=== PATIENT | female | born 1985 | race Caucasian/White ===

== ENCOUNTER 2017-10-26 15:04 | Emergency (ER) | payer OTHER ==
[~2017-10-26 15:04] MED LIST: AMOXICILLIN500 M3 PO; AMOXIL500 MG PO; BACTRIM DS 8001 TAB PO; BENADRYL/LIDO/MAALOX PO; FLONASE120 SPRAY/ NAS; PYRIDIUM200 MG PO
[2017-10-26 15:56] LABS: ABSOLUTE BASOPHIL COUNT 0 /CUMM (0.0-0.2); ABSOLUTE EOSINOPHIL COUNT 0 /CUMM (0.0-0.7); ABSOLUTE GRANULOCYTE CT 10.2 /CUMM (1.4-6.5); ABSOLUTE LYMPH COUNT 0.9 /CUMM (1.2-3.4); ABSOLUTE MONOCYTE COUNT 0.5 /CUMM (0.10-0.60); BASOPHIL % 0 % (0.0-2.0); EOSINOPHIL % 0.1 % (0-5); HEMATOCRIT 37.6 % (37-47); MEAN CORPUSCULAR HGB 28.7 PG (27.0-31.0); MEAN CORPUSCULAR HGB CONC 33.5 G/DL (33.0-37.0); MEAN CORPUSCULAR VOLUME 85.7 FL (81.0-99.0); MEAN PLATELET VOLUME 8.1 FL (7.4-10.4); PLATELET COUNT 267 /CUMM (130-400); RBC DISTRIBUTION WIDTH 14.9 % (11.5-14.5); RED BLOOD CELL CT 4.39 /CUMM (4.20-5.40); WHITE BLOOD CELL COUNT 11.6 /CUMM (4.8-10.8)
[2017-10-26 16:01] LABS: GRANULOCYTE % 87.7 % (42.2-75.2)
--- NOTE | 2017-10-26 19:14 | ED GI/GU/ABDOMINAL COMPLAINT ---
History of Present Illness General Chief Complaint: Upper Respiratory Sx/Fever Stated Complaint: 27 WKS PREG URI WAS TOLD TO COME TO ER Source: patient Exam Limitations: no limitations Vital Signs & Intake/Output Vital Signs & Intake/Output Vital Signs Date Time Temp Pulse Resp B/P B/P Pulse O2 O2 Flow FiO2 Mean Ox Delivery Rate 10/26 1941 98.9 10/26 1517 98.3 112 16 123/86 97 Room Air Allergies Coded Allergies: NO KNOWN ALLERGIES (10/26/17) Reconcile Medications Amoxicillin (Amoxil) 500 MG CAP 1 TAB PO TID INFECITON Amoxicillin 500 MG TABLET 1 TAB PO BID PHARYNGITIS [BENADRYL/LIDO/MAALOX] 15 ML ORAL.SUSP 5 ML PO TID PRN THORAT PAIN SWISH AND SWALLOW 1/3 BENADRYL 1/3 MAALOX 1/3 LIDOCAINE Fluticasone Propionate (Flonase) 120 SPRAY/BOT SPR 2 SPRY MARIUSZ DAILY SINUSITIS 2 SPRAYS EACH NOSTRIL DAILY Ondansetron (Zofran Odt) 4 MG TAB.RAPDIS 1 TAB SL TID PRN nausea Phenazopyridine Hydrochlorid2 (Pyridium) 200 MG TAB 1 TAB PO TID DYSURIA Sulfamethoxazole/Trimethopri (Bactrim Ds 800 MG-160 MG) 1 TAB TAB 1 TAB PO BID UTI Triage Note: PT TO ED SIB OB FOR GI BUG X24 HOURS. OB REQUESTING IV FLUIDS. PT HAS BEEN +V/D. IS CURRENTLY 27 WEEKS COTY 01/22. Triage Nurses Notes Reviewed? yes ? y Is pt currently ? No Onset: Abrupt Duration: day(s): (1-2), changing over time, continues in ED Timing: single episode today Quality/Severity: cramping, vomiting Severity Numbers: 6 Location: generalized abdomen Radiation: no radiation Activities at Onset: none Prior Abdominal Problems: none Sexually Active: Yes No Modifying Factors: none Modifying Factors: Worsens With: vomiting. Associated Symptoms: abdominal pain, diarrhea, nausea/vomiting HPI: 32-year-old female 2 P1 currently 27 weeks presents for evaluation of nausea vomiting diarrhea and abdominal pain. Patient is a symptoms started 1-2 days ago and been persistent. She states that she has bilateral lower abdominal cramping worse after vomiting. She has not been able tolerate much fluids. She is not taking any medicine. No fever. She also reports multiple episodes of watery diarrhea no blood or mucus. She states that her is sick at home with similar symptoms. She denies vaginal bleeding or change in feeling her baby's movement. No fever no chest pain or shortness of breath no lower extremity edema no headache. No recent travel or recent antibiotics. No urinary symptoms. (Tate Ceja) Past History Travel History Traveled to [place] past 21 day No Medical History Any Pertinent Medical History? see below for history Neurological: NONE EENT: NONE Cardiovascular: NONE Respiratory: NONE Gastrointestinal: NONE Hepatic: NONE Renal: NONE Musculoskeletal: NONE Psychiatric: NONE Endocrine: NONE Blood Disorders: NONE Cancer(s): NONE INDUSTRIAL RELATIONS SPECIALIST/Reproductive: NONE Surgical History Surgical History: Psychosocial History What is your primary language Cape Verdean Tobacco Use: Never used Family History Hx Contributory? No (Tate Ceja) Review of Systems Review of Systems Constitutional: Reports: no symptoms. EENTM: Reports: no symptoms. Respiratory: Reports: no symptoms. Cardiovascular: Reports: no symptoms. GI: Reports: see HPI, abdominal pain, diarrhea, nausea, vomiting. Genitourinary: Reports: no symptoms. Musculoskeletal: Reports: no symptoms. Skin: Reports: no symptoms. Neurological/Psychological: Reports: no symptoms. Hematologic/Endocrine: Reports: no symptoms. Immunologic/Allergic: Reports: no symptoms. All Other Systems: Reviewed and Negative (Tate Ceja) Physical Exam Physical Exam General Appearance: well developed/nourished, no apparent distress, alert, awake Head: atraumatic, normal appearance Eyes: Bilateral: normal appearance, PERRL, EOMI. Ears, Nose, Throat, Mouth: hearing grossly normal, moist mucous membrane Neck: normal inspection, supple, full range of motion Respiratory: normal breath sounds, chest non-tender, no respiratory distress, lungs clear Cardiovascular: regular rate/rhythm, normal peripheral pulses Peripheral Pulses: 2+ radial (R), 2+ radial (L) Gastrointestinal: normal bowel sounds, non-tender, no organomegaly, tenderness ( bilateral flanks) Back: normal inspection, normal range of motion, no vertebral tenderness Extremities: normal range of motion, no peripheral edema Neurologic/Psych: no motor/sensory deficits, awake, alert, oriented x 3, normal gait, normal mood/affect Skin: intact, normal color, warm/dry Core Measures ACS in differential dx? No Sepsis Present: No Sepsis Focused Exam Completed? No (Roosevelt TRUJILLO,Tate) Progress Differential Diagnosis: AAA, AMI, appendicitis, biliary colic, bowel obstruction , cholecystitis, diverticulitis, gastritis, intrauterine , kidney stone , peptic ulcer, PUD/GERD, UTI/pyelo, gastroenteritis, colitis Plan of Care: Orders Procedure Date/time Status URINALYSIS 10/26 1804 Complete Saline Lock 10/26 1523 Active COMPREHENSIVE METABOLIC PANEL 10/26 1523 Complete CBC WITHOUT DIFFERENTIAL 10/26 152 Complete RAPID VIRAL INFLUENZA A 10/26 1507 Complete Laboratory Tests 10/26/17 2100: Urine Color YEL, Urine Clarity HAZY H, Urine pH 6.0, Ur Specific [place] >= 1.030, Urine Protein NEG, Urine Ketones >=80, Urine Nitrite NEG, Urine Bilirubin NEG, Urine Urobilinogen 0.2, Ur Leukocyte Esterase NEG, Ur Microscopic SEDIMENT EXAMINED, Urine RBC RARE, Urine WBC 1-3 H, Ur Epithelial Cells MOD H, Urine Bacteria MOD H, Urine Mucus MOD H, Urine Hemoglobin NEG, Urine Glucose NEG 10/26/17 1547: Anion Gap 11, Estimated GFR > 60, BUN/Creatinine Ratio 30.0 H, Glucose 76, Calcium 9.1, Total Bilirubin 0.6, AST 14, ALT 20, Alkaline Phosphatase 68, Total Protein 6.5, Albumin 3.7, Globulin 2.8, Albumin/Globulin Ratio 1.3, CBC w Diff NO MAN DIFF REQ, RBC 4.39, MCV 85.7, MCH 28.7, MCHC 33.5, RDW 14.9 H, MPV 8.1, Gran % 87.7 H, Lymphocytes % 7.5 L, Monocytes % 4.7, Eosinophils % 0.1, Basophils % 0, Absolute Granulocytes 10.2 H, Absolute Lymphocytes 0.9 L, Absolute Monocytes 0.5, Absolute Eosinophils 0, Absolute Basophils 0 Microbiology 10/26 1520 NASOPHARYN: Influenza Virus A & B Rapid Smear - COMP Patient seen and evaluated. Vital signs are stable she appears well. She has some bilateral tenderness to the flanks. No peritoneal signs. No vaginal bleeding she is afebrile. Patient was medicated with IV fluids and IV Pepcid and Zofran. Basic blood work and in viability ultrasound obtained. We'll reevaluate patient Patient is feeling better after medications and fluids. Work does not show any significant findings. Urine is not showing signs of infection. Patient was able to tolerate food and fluids here. Reevaluation of her abdomen does not show any signs of peritonitis. No vaginal bleeding. Reviewed all results of today's visit with patient. Continue Zofran bland foods increase fluids follow- up with BAR GAUGER AND LUBRICATOR TENDER. Case discussed with Dr. Palmer he agrees. Diagnostic Imaging: Viewed by Me: Ultrasound. Discussed w/RAD: Ultrasound. Radiology Impression: PATIENT: LAURA ANGELES PRESENT AGE: 32 PATIENT ACCOUNT NO: [id number] : 87 LOCATION: [facility] ORDERING PHYSICIAN: Tate TRUJILLO SERVICE DATE: 10/26/17 EXAM TYPE: US - US- VIABILITY EXAMINATION: ULTRASOUND PELVIC, Limited. CLINICAL INFORMATION: Nausea. Vomiting. Diarrhea. Fever. COMPARISON: None. TECHNIQUE: Transabdominal ultrasound. Spectral Doppler and color Doppler exam was utilized. LMP: 04/09/2017. Gestational age 28 weeks 4 days. COTY 01/14/2018 FINDINGS: UTERUS: There is a single intrauterine gestation in transverse lie in breech presentation. There is motion. cardiac activity is 140 bpm. Placenta is posterior. biometrics: 1. Biparietal diameter. 7.06 cm. Gestational age 20 weeks 3 days. 2. OFD. 7.66 cm. 24 weeks 2 days. 3. Head circumference. 24.97 cm. 27 weeks 1 day. 4. Abdominal circumference. 24.17 cm. 28 weeks 4 days. 5. Femur length. 5.17 cm. 27 weeks 5 days. Estimated gestational age by this ultrasound study is 28 weeks 0 days COTY 01/18/2018 Estimated weight 1164 g +/- 1 170 g, 20th percentile for LMP dating. Amniotic fluid index 12.4 cm. Largest pocket 4.94 cm. IMPRESSION: Single intrauterine gestation. Estimated gestational age by ultrasound 28 weeks 0 days. COTY 01/18/2018. DICTATED BY: Krunal Sánchez MD DATE/TIME DICTATED:10/26/172000 HOSPICE SUPERINTENDENT:KELSEY DATE/TIME TRANSCRIBED:10/26/172000 CONFIDENTIAL, DO NOT COPY WITHOUT APPROPRIATE AUTHORIZATION. <Electronically signed in Other Vendor System> SIGNED BY: Krunal Sánchez MD 10/26/172009 Initial ED EKG: none (Tate Ceja) Departure Departure Disposition: HOME OR SELF CARE Condition: Stable Clinical Impression Primary Impression: Nausea and vomiting during Referrals: James MARADIAGA,Ivon (PCP/Family) Additional Instructions: Rest and drink plenty of fluids. Eat bland foods like bananas rice applesauce and toast. Make a follow-up appointment with your BAR GAUGER AND LUBRICATOR TENDER doctor for this week. Zofran for nausea Tylenol for pain. Monitor symptoms closely return with any concerns Departure Forms: Customer Survey General Discharge Information Prescriptions: Current Visit Scripts Ondansetron (Zofran Odt) 1 TAB SL TID PRN nausea #10 TAB (Tate Ceja) PA/RETAIL LOAN ORIGINATOR ASSISTANT Co-Sign Statement Statement: ED Attending supervision documentation- [] I saw and evaluated the patient. I have also reviewed all the pertinent lab results and diagnostic results. I agree with the findings and the plan of care as documented in the PA's/RETAIL LOAN ORIGINATOR ASSISTANT's documentation. [x] I have reviewed the ED Record and agree with the PA's/RETAIL LOAN ORIGINATOR ASSISTANT's documentation. [] Additions or exceptions (if any) to the PAs/RETAIL LOAN ORIGINATOR ASSISTANT's note and plan are summarized below: [] (Spencer MARADIAGA,Jorge Best)
--- NOTE | 2017-10-26 20:10 | ULTRASOUND REPORT ---
EXAMINATION: ULTRASOUND PELVIC, Limited. CLINICAL INFORMATION: Nausea. Vomiting. Diarrhea. Fever. COMPARISON: None. TECHNIQUE: Transabdominal ultrasound. Spectral Doppler and color Doppler exam was utilized. LMP: 04/09/2017. Gestational age 28 weeks 4 days. COTY 01/14/2018 FINDINGS: UTERUS: There is a single intrauterine gestation in transverse lie in breech presentation. There is motion. cardiac activity is 140 bpm. Placenta is posterior. biometrics: 1. Biparietal diameter. 7.06 cm. Gestational age 20 weeks 3 days. 2. OFD. 7.66 cm. 24 weeks 2 days. 3. Head circumference. 24.97 cm. 27 weeks 1 day. 4. Abdominal circumference. 24.17 cm. 28 weeks 4 days. 5. Femur length. 5.17 cm. 27 weeks 5 days. Estimated gestational age by this ultrasound study is 28 weeks 0 days COTY 01/18/2018 Estimated weight 1164 g +/- 1 170 g, 20th percentile for LMP dating. Amniotic fluid index 12.4 cm. Largest pocket 4.94 cm. IMPRESSION: Single intrauterine gestation. Estimated gestational age by ultrasound 28 weeks 0 days. COTY 01/18/2018.
[2017-10-26] MEDS ORDERED: ZOFRAN ODT4 M1 SL (22:03)
[2017-10-26 22:10] VITALS: BP 132/87
== END 2017-10-26 22:14 ==
LOC: ERH 15:04
PROVIDERS: Physician Assistant Medical
DX: O21.9 Vomiting of pregnancy, unspecified (principal)
CPT/HCPCS: 81001; 87804; 87804-59; 96361; 96374; 96375; J0131; J2405

== ENCOUNTER 2017-11-20 14:17 | Inpatient (IN) | payer OTHER ==
[~2017-11-20] VITALS: Ht 157.5 cm; Wt 98.4 kg
[~2017-11-20 14:17] MED LIST changes: +ZOFRAN ODT4 M1 SL
--- NOTE | 2017-11-20 14:32 | ED GENERAL ADULT ---
History of Present Illness General Chief Complaint: Abdominal Pain/Flank Pain Stated Complaint: 31 WEEKS PREG , LT FLANK PAIN Source: patient Exam Limitations: no limitations Vital Signs & Intake/Output Vital Signs & Intake/Output Vital Signs Date Time Temp Pulse Resp B/P B/P Pulse O2 O2 Flow FiO2 Mean Ox Delivery Rate 11/20 1834 98.4 84 18 120/68 98 Room Air 11/20 1653 97.4 74 20 120/64 97 11/20 1530 90 20 104/66 97 Room Air promptly 11/20/17 2:47 PM 32-year-old female presents to the emergency department for severe left-sided flank pain. She is currently 31 weeks . She denies vaginal bleeding she. She said the onset of the symptoms began approximately 4 hours ago. She denies fever vomiting or other complaints. She was seen in the childbirth center and was told that she is not in labor. Recently started on Zithromax and Tamiflu for a viral infection her CAR DELIVERER is Dr. Baig. Allergies Coded Allergies: NO KNOWN ALLERGIES (10/26/17) Reconcile Medications Azithromycin (Zithromax) 250 MG TABLET 1 DP PO AD ABX (Reported) 2 the first day followed by 1 for days 2-5 Humulin N (Conchis) (Humulin N) 100 UNIT/ML VIAL 6 UNITS SC QPM GESTATIONAL DM (Reported) Ondansetron (Zofran Odt) 4 MG TAB.RAPDIS 1 TAB SL TID PRN nausea Oseltamivir Phosphate (Tamiflu) 75 MG CAPSULE 1 CAP PO BID FLU SYMPTOMS ( Reported) Pnv95/Ferrous Fumarate/FA ( Formula Tablet) (Unknown Strength) TABLET (Unknown Dose) PO DAILY SUPPLEMENT (Reported) Triage Note: 32F AT 31WEEKS GESTATION FROM CBC TO ED FOR LEFT FLANK PAIN SINCE 11:15 WITHOUT ANY RELIEF FROM TYLENOL. PAIN IS CONSTANT.DENIES DYSURIA OR HEMATURIA. MINIMAL CVA TENDERNESS. PAIN IS STABBING AND RADIATES DOWN HIP INTO LEG. HX GESTATIONAL DIABETES. +N/-V/-D. AFEBRILE. NOTABLY UNCOMFORTABLE AND COLICKY IN TRIAGE. REPORTS VAGINAL BLEEDING A FEW DAYS AGO BUT NONE TODAY. DISCHARGE UNCHANGED FROM BASELINE Triage Nurses Notes Reviewed? yes : Yes Patient currently breastfeeds: Yes HPI: IV fluids IV morphine for pain, IV Zofran, Past History Travel History Traveled to [place] past 21 day No Medical History Any Pertinent Medical History? see below for history Neurological: NONE EENT: NONE Cardiovascular: NONE Respiratory: NONE Gastrointestinal: NONE Hepatic: NONE Renal: NONE Musculoskeletal: NONE Psychiatric: NONE Endocrine: NONE Blood Disorders: NONE Cancer(s): NONE CONTACT CENTER CONSULTANT/Reproductive: NONE Surgical History Surgical History: Psychosocial History What is your primary language Kiswahili Tobacco Use: Never used Family History Hx Contributory? No Review of Systems Review of Systems Constitutional: Reports: fever. EENTM: Reports: no symptoms. Respiratory: Denies: short of breath. Cardiovascular: Denies: chest pain. GI: Reports: see HPI, vomiting. Genitourinary: Reports: see HPI. Musculoskeletal: Reports: back pain. Skin: Denies: rash. Neurological/Psychological: Reports: headache. Hematologic/Endocrine: Denies: bruising, bleeding. Physical Exam Physical Exam General Appearance: well developed/nourished, no apparent distress, alert, awake , anxious Head: atraumatic, normal appearance Eyes: Bilateral: normal appearance, PERRL, EOMI. Ears, Nose, Throat: normal pharynx Neck: normal inspection, supple, full range of motion Respiratory: normal breath sounds, chest non-tender, no respiratory distress Cardiovascular: tachycardia Peripheral Pulses: 4+ radial (R), 4+ radial (L) Gastrointestinal: gravid uterus nontender Back: CVA tenderness (L), decreased range of motion Extremities: pedal edema Neurologic/Psych: no motor/sensory deficits, awake, alert, oriented x 3 Core Measures ACS in differential dx? No CVA/TIA Diagnosis: No Sepsis Present: No Sepsis Focused Exam Completed? No Progress Differential Diagnoses I considered the following diagnoses in my evaluation of the patient: [ Pyelonephritis, renal colic, premature labor, abruption of placenta Plan of Care: Orders Procedure Date/time Status Consistent Carbohydrate 1 11/21 B Active CBC WITHOUT DIFFERENTIAL 11/21 0800 Active Patient Data 11/20 1741 Active ED Holding Orders 11/20 1739 Active Admit to inpatient 11/20 1739 Active Vital Signs 11/20 1739 Active Code Status 11/20 1739 Active BLOOD CULTURE 11/20 1711 Active Intake & Output 11/20 1655 Active CULTURE,URINE 11/20 1453 Active URINALYSIS 11/20 1453 Complete PROTHROMBIN TIME 11/20 1453 Complete COMPREHENSIVE METABOLIC PANEL 11/20 1453 Complete CBC WITHOUT DIFFERENTIAL 11/20 1453 Complete VTE Mechanical Prophylaxis 11/20 UNK Active OB: Monitoring 11/20 UNK Active Activity/Ambulation 11/20 UNK Active Current Medications Sig/Terence Start time Last Medication Dose Stop Time Status Admin Ceftriaxone Sodium 1,000 MG DAILY 11/21 0900 AC (Rocephin) Insulin Human NPH 6 UNITS AT BEDTIME 11/20 2100 AC (Novolin-N Insulin) Famotidine 20 MG DAILY 11/20 193 AC (Pepcid) Dextrose/Lactated 1,000 ML Q6H 11/20 1914 AC Ringer's (D5W in Lactated Ringers) Ondansetron HCl 4 MG Q6P PRN 11/20 1914 AC (Zofran) Oxycodone/ 1 TAB Q4P PRN 11/20 1914 AC Acetaminophen (Percocet) Oxycodone/ 2 TAB Q4P PRN 11/20 1914 AC Acetaminophen (Percocet) Laboratory Tests 11/20/17 1530: Urinalysis LIGHT H, Urine Color YEL, Urine Clarity HAZY H, Urine pH 6.0, Ur Specific [place] >= 1.030, Urine Protein 100 H, Urine Ketones 40 H, Urine Nitrite NEG, Urine Bilirubin NEG, Urine Urobilinogen 0.2, Ur Leukocyte Esterase TRACE H, Ur Microscopic SEDIMENT EXAMINED, Urine RBC 50-75 H, Urine WBC 10-15 H, Ur Epithelial Cells MOD H, Urine Bacteria FEW H, Urine Mucus FEW, Urine Hemoglobin LARGE H, Urine Glucose NEG 11/20/17 1509: Anion Gap 12, Estimated GFR > 60, BUN/Creatinine Ratio 24.0, Glucose 92, Calcium 9.5, Total Bilirubin 0.3, AST 17, ALT 35, Alkaline Phosphatase 92, Total Protein 6.4, Albumin 3.7, Globulin 2.7, Albumin/Globulin Ratio 1.4, PT 11.3, INR 1.04, CBC w Diff NO MAN DIFF REQ, RBC 4.39, MCV 85.5, MCH 28.1, MCHC 32.8 L, RDW 14.6 H, MPV 8.1, Gran % 83.3 H, Lymphocytes % 12.1 L, Monocytes % 4.1, Eosinophils % 0.2, Basophils % 0.3, Absolute Granulocytes 11.6 H, Absolute Lymphocytes 1.7, Absolute Monocytes 0.6, Absolute Eosinophils 0, Absolute Basophils 0 Microbiology 11/20 1715 BLOOD: Blood Culture - RECD 11/20 1700 BLOOD: Blood Culture - RECD 11/20 1530 URINE ROUT: Urine Culture - RECD Initial ED EKG: none Departure Departure Disposition: STILL A PATIENT Condition: Stable Clinical Impression Primary Impression: Flank pain Secondary Impressions: Hydronephrosis, , Pyelonephritis, Vomiting Referrals: Ivon Ramirez MD (PCP/Family) Departure Forms: Customer Survey General Discharge Information Admission Note Spoke With: Jarrod Bianchi MD Documentation of Exam: Documentation of any treatments & extenuating circumstances including Concerns Regarding Discharge (functional status, medication knowledge or non-compliance, living conditions, etc.) that warrant an admission rather than observation: [ Patient needs admission for IV antibiotics, IV pain control, IV fluids, urology consultation] PATIENT: LAURA ANGELES PRESENT AGE: 32 PATIENT ACCOUNT NO: [id number] : 87 LOCATION: [facility] ORDERING PHYSICIAN: Lee Ross DO SERVICE DATE: 11/20/17 EXAM TYPE: US - US- VIABILITY EXAMINATION: ULTRASOUND PELVIC, COMPLETE CLINICAL INFORMATION: Left flank pain. . COMPARISON: Ultrasound pelvis 10/26/2017 TECHNIQUE: Transabdominal grayscale ultrasound. Spectral Doppler and color Doppler exam was utilized. Spectral Doppler used to assess cardiac activity. LMP: 04/17/2017. Gestational age 31 weeks 0 days. COTY 01/22/2018 FINDINGS: UTERUS: There is a single intrauterine gestation in a longitudinal lie, vertex presentation. There is motion and cardiac activity. heart rate 132 bpm. Appropriate amount of amniotic fluid. Amniotic fluid index 16.4 cm. Largest pocket measures 5.42 cm. Placenta is posterior. biometrics: 1. Biparietal diameter. 8.34 cm. 33 weeks 3 days. 2. OFD. 10.63 cm. 33 weeks 5 days. 3. Head circumference. 30.12 cm. 33 weeks 3 days. 4. Abdominal circumference. 27.6 cm. 31 weeks 5 days. 5. Femur length. 6.21 cm. 32 weeks 2 days. Gestational age by this exam is 32 weeks 5 days. COTY 01/10/2018. Estimated weight 1911 g +/- 2 179 g. Estimated weight is 76 percentile by LMP dating. ADNEXA: Not assessed due to third trimester . Cul-de-sac: No Fluid IMPRESSION: Single intrauterine gestation. motion present. heart rate 132 bpm. DICTATED BY: Krunal Sánchez MD DATE/TIME DICTATED:11/20/171701 DIELECTRIC EMBOSSING MACHINE OPERATOR:KELSEY DATE/TIME TRANSCRIBED:11/20/171701 CONFIDENTIAL, DO NOT COPY WITHOUT APPROPRIATE AUTHORIZATION. <Electronically signed in Other Vendor System> SIGNED BY: Krunal Sánchez MD 11/20/171711 PATIENT: LAURA ANGELES PRESENT AGE: 32 PATIENT ACCOUNT NO: [id number] : 87 LOCATION: [facility] ORDERING PHYSICIAN: Lee Ross DO SERVICE DATE: 11/20/17 EXAM TYPE: US - US-RENAL/KIDNEY EXAMINATION: US RETROPERITONEAL COMPLETE (RENAL) CLINICAL INFORMATION: Left flank pain. Patient reports 31 weeks COMPARISON: Ultrasound of the kidneys February 2016 TECHNIQUE: Real-time imaging of the kidneys and bladder. FINDINGS: Right kidney: 12.3 x 5.2 x 5.3 cm. No hydronephrosis. No mass or calcification. Left kidney: 12.1 x 7.2 x 6.7. There is mild hydronephrosis. This was not present on the prior exam. Bladder: Not visible IMPRESSION: Mild hydronephrosis on the left of uncertain significance given the patient is reportedly 31 weeks . This can be physiologic in such patients. No calculi identified DICTATED BY: Jan Dominguez MD DATE/TIME DICTATED:11/20/171703 DIELECTRIC EMBOSSING MACHINE OPERATOR:KELSEY DATE/TIME TRANSCRIBED:11/20/171703 CONFIDENTIAL, DO NOT COPY WITHOUT APPROPRIATE AUTHORIZATION. <Electronically signed in Other Vendor System> SIGNED BY: Jan Dominguez MD 11/20 The patient was accepted for admission to the childbirth center by Dr. Carr Critical Care Note Critical Care Note Critical Care Time: non-applicable
[2017-11-20 15:23] LABS: PT 11.3 SEC (9.4-12.5)
[2017-11-20 15:39] LABS: ABSOLUTE BASOPHIL COUNT 0 /CUMM (0.0-0.2); ABSOLUTE EOSINOPHIL COUNT 0 /CUMM (0.0-0.7); ABSOLUTE LYMPH COUNT 1.7 /CUMM (1.2-3.4); ABSOLUTE MONOCYTE COUNT 0.6 /CUMM (0.10-0.60); BASOPHIL % 0.3 % (0.0-2.0); EOSINOPHIL % 0.2 % (0-5); GRANULOCYTE % 83.3 % (42.2-75.2); HEMATOCRIT 37.5 % (37-47); MEAN CORPUSCULAR HGB 28.1 PG (27.0-31.0); MEAN CORPUSCULAR HGB CONC 32.8 G/DL (33.0-37.0); MEAN CORPUSCULAR VOLUME 85.5 FL (81.0-99.0); MEAN PLATELET VOLUME 8.1 FL (7.4-10.4); PLATELET COUNT 276 /CUMM (130-400); RBC DISTRIBUTION WIDTH 14.6 % (11.5-14.5); RED BLOOD CELL CT 4.39 /CUMM (4.20-5.40); WHITE BLOOD CELL COUNT 13.9 /CUMM (4.8-10.8)
[2017-11-20 15:40] LABS: ABSOLUTE GRANULOCYTE CT 11.6 /CUMM (1.4-6.5)
--- NOTE | 2017-11-20 17:11 | ULTRASOUND REPORT ---
EXAMINATION: US RETROPERITONEAL COMPLETE (RENAL) CLINICAL INFORMATION: Left flank pain. Patient reports 31 weeks COMPARISON: Ultrasound of the kidneys February 2016 TECHNIQUE: Real-time imaging of the kidneys and bladder. FINDINGS: Right kidney: 12.3 x 5.2 x 5.3 cm. No hydronephrosis. No mass or calcification. Left kidney: 12.1 x 7.2 x 6.7. There is mild hydronephrosis. This was not present on the prior exam. Bladder: Not visible IMPRESSION: Mild hydronephrosis on the left of uncertain significance given the patient is reportedly 31 weeks . This can be physiologic in such patients. No calculi identified
--- NOTE | 2017-11-20 17:12 | ULTRASOUND REPORT ---
EXAMINATION: ULTRASOUND PELVIC, COMPLETE CLINICAL INFORMATION: Left flank pain. . COMPARISON: Ultrasound pelvis 10/26/2017 TECHNIQUE: Transabdominal grayscale ultrasound. Spectral Doppler and color Doppler exam was utilized. Spectral Doppler used to assess cardiac activity. LMP: 04/17/2017. Gestational age 31 weeks 0 days. COTY 01/22/2018 FINDINGS: UTERUS: There is a single intrauterine gestation in a longitudinal lie, vertex presentation. There is motion and cardiac activity. heart rate 132 bpm. Appropriate amount of amniotic fluid. Amniotic fluid index 16.4 cm. Largest pocket measures 5.42 cm. Placenta is posterior. biometrics: 1. Biparietal diameter. 8.34 cm. 33 weeks 3 days. 2. OFD. 10.63 cm. 33 weeks 5 days. 3. Head circumference. 30.12 cm. 33 weeks 3 days. 4. Abdominal circumference. 27.6 cm. 31 weeks 5 days. 5. Femur length. 6.21 cm. 32 weeks 2 days. Gestational age by this exam is 32 weeks 5 days. COTY 01/10/2018. Estimated weight 1911 g +/- 2 179 g. Estimated weight is 76 percentile by LMP dating. ADNEXA: Not assessed due to third trimester . Cul-de-sac: No Fluid IMPRESSION: Single intrauterine gestation. motion present. heart rate 132 bpm.
[2017-11-20] MEDS ORDERED: ZITHROMAX250 M2 PO (18:28)
[2017-11-20] MEDS ORDERED: HUMULIN N100 UNIT/1 SC (18:28)
[2017-11-20] MEDS ORDERED: TAMIFLU75 M1 PO (18:29)
[2017-11-20] MEDS ORDERED: PRENATAL FORMU1 EAC2 PO (18:30)
[2017-11-20 18:34] VITALS: BP 120/68
--- NOTE | 2017-11-21 08:32 | PN- OBGYN ---
See Addendum Surgical Brief Attending Note Brief Attending Note: Seen and evaluated Feels much better than yesterday Pain minimal but does feel pressure on left side Denies nausea nor vomiting nor dyspnea Positive movement Vitals per paper record Lungs clear Abdomen soft and back on maternal right Cvat mild on left Meds. Ceftriaxone Hd#2 for this patient with acute left side pyelonephritis and 31 weeks gestation ID. Afebrile and continue IV antivbiotics x 48 hours total than change to appropriate oral antibiotic. After 10 day course to stay on suppression. Recommend probiotic to reduce antibiotic associated diarrhea and or willow. Maintain Po hydration. Follow up cbc and cultures. . heart rate q shift per parameters. No findings of PTL VTE prophylaxis with alps. Anticipate dc 11/22/18 with one week follow up with Dr Baig
[2017-11-21 09:00] LABS: ABSOLUTE BASOPHIL COUNT 0 /CUMM (0.0-0.2); ABSOLUTE EOSINOPHIL COUNT 0.1 /CUMM (0.0-0.7); ABSOLUTE GRANULOCYTE CT 7.1 /CUMM (1.4-6.5); ABSOLUTE LYMPH COUNT 2.1 /CUMM (1.2-3.4); ABSOLUTE MONOCYTE COUNT 0.8 /CUMM (0.10-0.60); BASOPHIL % 0.2 % (0.0-2.0); EOSINOPHIL % 0.6 % (0-5); GRANULOCYTE % 70.5 % (42.2-75.2); MEAN CORPUSCULAR HGB 28.5 PG (27.0-31.0); MEAN CORPUSCULAR VOLUME 86.3 FL (81.0-99.0); MEAN PLATELET VOLUME 7.8 FL (7.4-10.4); PLATELET COUNT 218 /CUMM (130-400); RBC DISTRIBUTION WIDTH 14.5 % (11.5-14.5); RED BLOOD CELL CT 3.44 /CUMM (4.20-5.40)
[2017-11-21 09:54] LABS: HEMATOCRIT 29.7 % (37-47)
--- NOTE | 2017-11-21 16:09 | Cons- Urology ---
General Information and HPI Consulting Request Date of Consult: 11/21/17 Requested By: Jarrod Bianchi MD Reason for Consult: Left flank pain with hydronephrosis Source of Information: patient, old records Exam Limitations: no limitations History of Present Illness: Patient is 31 weeks' , and 1 week ago had some low-grade fevers with some left back pain. This resolved spontaneously, but she did have a bit of a cough. Had some coughing during the week, which resulted in some minimal vaginal/urinary bleeding. She did well until suddenly Thursday afternoon, when she developed severe left flank pain, which was unremitting. She was seen in the emergency room, and evaluated. She was noted to have pyuria, microhematuria , and she underwent an ultrasound which revealed mild left hydronephrosis. She was admitted started on IV antibiotics, and given IV fluids. She has had no pain since yesterday. She denies any significant urologic history, other than an occasional UTI. She denies any personal or family history of kidney stones. She is feeling well now , without any urinary complaints. Allergies/Medications Allergies: Coded Allergies: NO KNOWN ALLERGIES (10/26/17) Home Med List: Azithromycin (Zithromax) 250 MG TABLET 1 DP PO AD ABX (Reported) 2 the first day followed by 1 for days 2-5 Humulin N (Conchis) (Humulin N) 100 UNIT/ML VIAL 6 UNITS SC QPM GESTATIONAL DM (Reported) Ondansetron (Zofran Odt) 4 MG TAB.RAPDIS 1 TAB SL TID PRN nausea Oseltamivir Phosphate (Tamiflu) 75 MG CAPSULE 1 CAP PO BID FLU SYMPTOMS ( Reported) Pnv95/Ferrous Fumarate/FA ( Formula Tablet) (Unknown Strength) TABLET (Unknown Dose) PO DAILY SUPPLEMENT (Reported) Current Medications: Current Medications Sig/Terence Start time Last Medication Dose Route Stop Time Status Admin Ceftriaxone Sodium 1,000 MG 1800 11/21 1800 AC IV Ceftriaxone Sodium 0 .STK-MED ONE 11/20 1741 DC .ROUTE Ceftriaxone Sodium 1,000 MG ONCE ONE 11/20 1730 DC 11/20 IV 11/20 173 1736 Dextrose/Lactated 1,000 ML Q6H 11/20 1915 DC Ringer's IV Famotidine 20 MG QPM 11/20 2108 AC 11/20 PO 3 Famotidine 20 MG DAILY 11/20 193 DC PO Insulin Human NPH 6 UNITS AT BEDTIME 11/20 2100 AC 11/20 SC 2229 Lactated Ringer's 1,000 ML Q6H 11/20 2014 AC 11/21 IV 0936 Morphine Sulfate 0 .STK-MED ONE 11/20 165 DC .ROUTE Morphine Sulfate 4 MG ONCE ONE 11/20 1645 DC 11/20 IV 11/20 164 165 Multivitamins 1 TAB DAILY 11/21 09 AC 11/21 PO 0936 Ondansetron HCl 4 MG Q6P PRN 11/20 1914 AC IV Ondansetron HCl 0 .STK-MED ONE 11/20 165 DC .ROUTE Ondansetron HCl 4 MG ONCE ONE 11/20 164 DC 11/20 IV 11/20 1645 165 Oxycodone/ 1 TAB Q4P PRN 11/20 1914 AC Acetaminophen PO Oxycodone/ 2 TAB Q4P PRN 11/20 1914 AC Acetaminophen PO Past History Medical History Neurological: NONE EENT: NONE Cardiovascular: NONE Respiratory: NONE Gastrointestinal: NONE Hepatic: NONE Renal: NONE Musculoskeletal: NONE Psychiatric: NONE Endocrine: NONE Blood Disorders: NONE Cancer(s): NONE 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 Surgical History Pertinent Surgical History: Review of Systems Review of Systems: See HPI Exam & Diagnostic Data Vital Signs and I&O Vital Signs Date Time Temp Pulse Resp B/P B/P Pulse O2 O2 Flow FiO2 Mean Ox Delivery Rate 11/20 1834 98.4 84 18 120/68 98 Room Air 11/20 165 97.4 74 20 120/64 97 Intake & Output 11/21 1600 11/21 0800 11/21 0000 11/20 1600 11/20 0800 11/20 0000 Intake Total 1000 Output Total Balance 1000 Intake, IV 1000 Patient 217 lb Weight Weight Reported by Patient Measurement Method Physical Exam Other Physical Findings: She is comfortable sitting up in a chair, communicating easily. She has no CVA tenderness. Last 24 Hours of Labs: Laboratory Tests 11/22 799 Hematology CBC w Diff NO MAN DIFF REQ WBC (4.8 - 10.8 /CUMM) 10.0 RBC (4.20 - 5.40 /CUMM) 3.44 L Hgb (12.0 - 16.0 G/DL) 9.8 L Hct (37 - 47 %) 29.7 L MCV (81.0 - 99.0 FL) 86.3 MCH (27.0 - 31.0 PG) 28.5 MCHC (33.0 - 37.0 G/DL) 33.0 RDW (11.5 - 14.5 %) 14.5 Plt Count (130 - 400 /CUMM) 218 MPV (7.4 - 10.4 FL) 7.8 Gran % (42.2 - 75.2 %) 70.5 Lymphocytes % (20.5 - 51.1 %) 21.2 Monocytes % (1.7 - 9.3 %) 7.5 Eosinophils % (0 - 5 %) 0.6 Basophils % (0.0 - 2.0 %) 0.2 Absolute Granulocytes (1.4 - 6.5 /CUMM) 7.1 H Absolute Lymphocytes (1.2 - 3.4 /CUMM) 2.1 Absolute Monocytes (0.10 - 0.60 /CUMM) 0.8 H Absolute Eosinophils (0.0 - 0.7 /CUMM) 0.1 Absolute Basophils (0.0 - 0.2 /CUMM) 0 Assessment/Plan Assessment/Plan She had sudden left flank pain, of uncertain etiology. She may pass a small stone, and is presently asymptomatic. No stone was recovered, but her urine was not strained during her visit here. Her urine culture is pending, though preliminary is negative. She continues to do well, I suspect she could be discharged Thursday morning. If she does still have a kidney stone, the recommendation would be observation, if she has no sign of urinary tract infection. If she does have urinary tract infection, she should be treated with appropriate antibiotics, and follow-up with Dr. Carl. She should have a follow -up ultrasound in a week or 2, unless she worsens, and should have further evaluation sooner. Should possibly include an MRI to rule out a stone. Consult Acknowledgment - Thank you for your consult request.
--- NOTE | 2017-11-22 08:39 | Discharge Summary ---
Visit Information Visit Dates Admission Date: 11/20/17 Discharge Date: 11/22/17 Hospital Course Course Attending Physician: Jarrod Bianchi MD Primary Care Physician: Ivon Ramirez MD Consulting Request: Consulting Physician: Gilmer Chowdhury Reason for Consult: Hydronephrosis Hospital Course: Patient was admitted from the ED after evaluation for back pain that she described as being in the flank and worse than childbirth. She stated that she had fever the week prior with cough and myalgias and was treated with Azithromycin and Tamiflu. States that than had blood in urine when wipes the preceeding day prior to coming in for evaluation and noted with the pain. No further fevers after the one last week. Since being hospitalized her pain improved. She never had a fever and only mild cough. WBC normalized and urine culture was negative as were blood cultures. Complications: None Allergies: Coded Allergies: NO KNOWN ALLERGIES (10/26/17) Significant Procedures: IV antibiotics Renal ultrasound Pertinent Lab Results: WBC 8 Urine culture negative UA with RBCs Disposition Summary Disposition Principal Diagnosis: Nephrolithiasis Additional Diagnosis: Gestational diabetes Discharge Disposition: home or self care Discharge Instructions General Discharge Information Code Status: Full Code Patient's Diet: Gestational diabetes diet Patient's Activity: As tolerated Follow-Up Instructions/Appts: With Dr Baig this week and Urology Dr Carl in 1-2 weeks Medications at Discharge Discharge Medications: Stop taking the following medications: Azithromycin (Zithromax) 250 MG TABLET ORAL As Directed Oseltamivir Phosphate (Tamiflu) 75 MG CAPSULE ORAL TWICE DAILY Continue taking these medications: Ondansetron (Zofran Odt) 4 MG TAB.RAPDIS 1 Tablet SUBLINGUAL THREE TIMES DAILY as needed for nausea Qty = 10 Comments: PT ONLY GIVEN IV ZOFRAN IN HOSPITAL Humulin N (Conchis) (Humulin N) 100 UNIT/ML VIAL 6 Units Inject into fatty tissue Every night Comments: Last Taken: 21:19 Time: 11/21/17 Pnv95/Ferrous Fumarate/FA ( Formula Tablet) (Unknown Strength) TABLET Unknown Dose ORAL DAILY Comments: Last Taken: 11/21/17 Time: 09:36 Copies To: Erick Puckett MD,Jarrod Post MD Review Statement Documenting Attending: Karri Mejia MD Other Findings: Patient seen and evaluated today States pain is no longer movement present Denies nausea nor vomiting Afebrile and VSS Lungs clear No cvat tenderness Soft abdomen with fundus soft and back on materal right Wbc 8 Urine culture negative Hd#3 for this patient at 31 plus weeks with complicated by GDMA2 and in good control. Found with flank pain and hematuria and admitted to assess for pyelonephritis. In my opinon based on the quality of the pain and negative culture and no fever that this is stone and not infection. Also even though was on Azithromycin that abx would not have coverage for usual pathogens associated with pyelonephritis. Appreciate Urology consultation who also concurred with stone. She will be discharged today with follow up this week Recommend increase PO fluids and to watch for worsening pain and or blood in urine. If fever or worsening pain to contact service provider. She states that she knows she doesnt drink much. Dietary modifications to maintain euglycemia and she will continue outpatient fingersticks for GDM management. Treatment plan reviewed with patient and partner. All questions answered.
[2017-11-22] MEDS ORDERED: COLACE100 M1 PO (17:09)
== END 2017-11-22 09:20 | DRG 781 ==
LOC: ERH 14:17 → GNO 17:41 → ENRESERV 18:11 → ENTRNSPT 18:45 → EDTRNSPTSTS 19:01 → EDTRNSPT 19:01 → CMPTRNSPT 19:07 → GNO 11-22 09:20
PROVIDERS: Emergency Medicine; Obstetrics & Gynecology
DX: O26.833 Pregnancy related renal disease, third trimester (principal); E11.21 Type 2 diabetes mellitus with diabetic nephropathy; Z3A.31 31 weeks gestation of pregnancy
CPT/HCPCS: 76775; 81001; 87040; 87086; 96374; 96375; 96376; J0696; J1815; J2405; J7120

== ENCOUNTER 2018-01-15 07:00 | Inpatient (IN) | payer OTHER ==
[~2018-01-15] VITALS: Ht 157.5 cm; Wt 101.6 kg
[~2018-01-15 07:00] MED LIST changes: +COLACE100 M1 PO; +HUMULIN N100 UNIT/1 SC; +PRENATAL FORMU1 EAC2 PO; +TAMIFLU75 M1 PO; +ZITHROMAX250 M2 PO
[2018-01-15 13:26] VITALS: BP 115/67
--- NOTE | 2018-01-15 17:48 | Labor & Delivery Summary ---
Delivery Summary Section: Section: repeat # Placenta: Placenta: normal, 3 vessel, manual Baby's Weight: 8-2 Apgars - 1 Min: 9 Apgars - 5 Min: 9
--- NOTE | 2018-01-15 17:48 | Operative Report ---
Operative/Inv Procedure Report Surgery Date: 01/15/18 Name of Procedure: Repeat Pre-Operative Diagnosis: Previous , gestational diabetes Post-Operative Diagnosis: Same Estimated Blood Loss: 650 Surgeon/Binder Operator: Erick Puckett MD,Jarrod Ortega MD Anesthesia: spinal Operative/Procedure Note Note: The patient was taken to the operating room and placed on the OR table in the sitting position where she underwent spinal anesthetic without complication. Boots were placed on her lower extremities and activated. She was repositioned into dorsal supine with the block under her right. A Carmona catheter was inserted into the bladder and drained clear yellow urine. The the abdomen was then prepped and draped in usual sterile fashion. A Pfannenstiel skin incision was made with the scalpel and taken down to the layer of the fascia. Fascia was nicked in the midline and extended bilaterally. The underlying rectus muscles were and the peritoneal cavity was entered bluntly. A Mallory bladder blade was inserted to protect the bladder from the operative field. A bladder flap was created using Metzenbaum scissors and placed behind the bladder blade. A low transverse uterine incision was made with the scalpel and the uterus was entered sharply and extended bilaterally. A liveborn female was delivered atraumatically and handed off to the waiting melt house drag operator. The placenta was then manually removed intact with three-vessel cord. The uterus was exteriorized and cleaned with a wet lap sponge of all clot and tissue debris. The uterus was then closed in 2 layers of 0 Polysorb, the second imbricating the first. The ovaries and fallopian tubes were inspected and noted to be normal. The abdomen and pelvis were copiously irrigated and the uterus was placed back into the abdominal cavity. The suture line was once again visualized and noted to be hemostatic. The rectus muscles and the peritoneum was closed in a [id number] fashion. Fascia was reapproximated using 0 Polysorb in a running nonlocking fashion. Subcutaneous tissues were then irrigated and coagulated were needed. The skin was closed using veena and a dry sterile dressing was applied to the wound. The patient was sent to recovery in satisfactory condition. All needle, sponge, and instrument counts were correct at the end of the procedure 4.
[2018-01-16 09:13] LABS: ABSOLUTE BASOPHIL COUNT 0 /CUMM (0.0-0.2); ABSOLUTE EOSINOPHIL COUNT 0.1 /CUMM (0.0-0.7); ABSOLUTE GRANULOCYTE CT 5.9 /CUMM (1.4-6.5); ABSOLUTE LYMPH COUNT 2.2 /CUMM (1.2-3.4); ABSOLUTE MONOCYTE COUNT 0.9 /CUMM (0.10-0.60); BASOPHIL % 0.3 % (0.0-2.0); EOSINOPHIL % 0.6 % (0-5); GRANULOCYTE % 64.9 % (42.2-75.2); HEMATOCRIT 34.3 % (37-47); MEAN CORPUSCULAR HGB 28.8 PG (27.0-31.0); MEAN CORPUSCULAR HGB CONC 33.7 G/DL (33.0-37.0); MEAN CORPUSCULAR VOLUME 85.5 FL (81.0-99.0); MEAN PLATELET VOLUME 8.5 FL (7.4-10.4); PLATELET COUNT 217 /CUMM (130-400); RBC DISTRIBUTION WIDTH 15.4 % (11.5-14.5); RED BLOOD CELL CT 4.01 /CUMM (4.20-5.40); WHITE BLOOD CELL COUNT 9.1 /CUMM (4.8-10.8)
--- NOTE | 2018-01-16 10:45 | PN- OBGYN ---
Surgical Brief Attending Note Brief Attending Note: Seen and evaluated Pain controlled Passing gas Denies nausea Using binder and helping for pain AVSS Lungs clear Abdomen soft and binder on. Wound intact. No erythema. Extremities no homans and no edema. Hct 34.3 and platelets wnl POD#1 s/p repeat csection and complicated by GDMA2 Tolerating diet OOB ad teddy and continue on lovenox As with GDM than 6-12 weeks for 2 hour GTT. This is set up with Endocrine. VTE risk mitigation with lovenox. Pain mgmt discussed Continue current postoperative care.
--- NOTE | 2018-01-17 09:15 | PN- OBGYN ---
Surgical Brief Attending Note Brief Attending Note: Seen and evauluated Doing well Had small bowel movement Pain is controlled Denies nausea nor vomiting AVSS Lungs clear Abdomen soft and wound intact Ext. No homans and no edema POD#2 s/p LTCS Tolerating diet Maintain on lovenox to reduce VTE risk DC home tomorrow.
[2018-01-18] MEDS ORDERED: IBUPROFEN800 M1 PO (07:49)
[2018-01-18] MEDS ORDERED: PERCOCET 5-3251 EACH PO (07:49)
== END 2018-01-18 11:15 | DRG 766 ==
LOC: GNO 07:00
PROVIDERS: Obstetrics & Gynecology
PROC: 10D00Z1 Extraction of Products of Conception, Low, Open Approach (ICD-10-PCS; principal; 2018-01-15)
DX: O34.211 Maternal care for low transverse scar from previous cesarean delivery (principal); N85.8 Other specified noninflammatory disorders of uterus; Z3A.39 39 weeks gestation of pregnancy; Z37.0 Single live birth; O24.429 Gestational diabetes mellitus in childbirth, unspecified control
CPT/HCPCS: GNOS; 87086; J0690; J1200; J1650; J1885; J2210; J7120